=== PATIENT | male | born 1945 | race Caucasian/White ===

== ENCOUNTER 2019-01-22 11:23 | Day surgery (SDC) ==
--- NOTE | 2019-01-15 10:18 | EKG Report ---
Test Performed on : 01/15/2019 10:06:56 AM Test Reason : PAT Blood Pressure : / mmHG Vent. Rate : 088 BPM Atrial Rate : 088 BPM P-R Int : 130 ms QRS Dur : 084 ms QT Int : 334 ms P-R-T Axes : 083 056 073 degrees QTc Int : 404 ms Normal sinus rhythm. with sinus arrhythmia. Low voltage QRS Nonspecific T wave abnormality Abnormal ECG When compared with ECG of 13-JUL-2014 15:28, Nonspecific T wave abnormality no longer evident in Anterior leads Confirmed by Michelle RENE, Rocael ([id number]) on 01/16/2019 8:38:47 AM
[2019-01-15 10:41] LABS: HEMATOCRIT 47.2 % (42.0-52.0); MCHC 31.8 g/dL (33-37); MCV 97.5 FL (81-99); MPV 9.9 FL (7.4-10.4); RBC 4.84 XMIL (4.7-6.1); RDW 13.7 % (11.5-14.5); WBC 7.38 X1000 (4.8-10.8)
[2019-01-15 10:56] LABS: AGAP 9; BUN 16 mg/dL (8-22); CALCIUM 9.2 mg/dL (8.8-10.2); CHLORIDE 105 mmol/L (98-107); COSMO 288; CREATININE 0.7 mg/dL (0.7-1.2); ESTIMATED GFR > 60; GLUCOSE 90 mg/dL (70-104); POTASSIUM 4.2 mmol/L (3.5-5.1); SODIUM 144 mmol/L (136-145); TCO2 30 mmol/L (25-35)
[2019-01-22] MEDS ORDERED: SOLU-CORTEF ONE (11:46)
[2019-01-22] MEDS ORDERED: PEPCID ONE (11:46)
[2019-01-22] MEDS ORDERED: REGLAN ONE (11:46)
[2019-01-22] MEDS ORDERED: KEFZOL 1 GM/D5W 1 GM/50 ML IVPB ONE (11:47)
[2019-01-22] MEDS ORDERED: LR 1,000 ML ONE (11:47)
[2019-01-22] MEDS ORDERED: DIPRIVAN 1% ONE (12:08)
[2019-01-22] MEDS ORDERED: XYLOCAINE-MPF 2% ONE (12:23)
[2019-01-22] MEDS ORDERED: NEOSPORIN G.U. IRRIGANT ONE (12:54)
[2019-01-22] MEDS ORDERED: DUONEB (A & A) ONE (12:58)
[2019-01-22] MEDS ORDERED: B & O 15A SUPP ONE (13:42)
--- NOTE | 2019-01-22 13:57 | Diag Imaging Result Doc PS360 ---
EXAM: RETROGRADES 2 OR 3 FILMS 01/22/2019 HISTORY: bilateral retrogrades TECHNIQUE: Retrograde pyelogram 14 images, 13 seconds fluoroscopy time, 0.33 mGy. COMMENT: There is a filling defect in the distal left ureter which appears to be fairly persistent. This was not present at the time the previous study of 07/15/2014. It is not visible on the precontrast images. No filling defects or obstructing lesions are demonstrated on the right side. IMPRESSION: Persistent nodular filling defect in the distal left ureter. Electronically signed by Bobo Elam 01/22/2019 1:54 PM
[2019-01-22] MEDS ORDERED: SODIUM CHLORIDE 0.9% INJ PRN (14:45)
[2019-01-22] MEDS ORDERED: PHENERGAN IV PRN (14:45)
[2019-01-22] MEDS ORDERED: NORCO-7.5 PO PRN (14:45)
[2019-01-22] MEDS ORDERED: DITROPAN PO PRN (14:45)
[2019-01-22] MEDS ORDERED: BENADRYL LIQUID PO PRN (14:45)
[2019-01-22] MEDS ORDERED: NORCO-10 PO PRN (14:45)
[2019-01-22] MEDS ORDERED: LABETALOL IV PRN (14:45)
[2019-01-22] MEDS ORDERED: NORCO-5 PO PRN (14:45)
[2019-01-22] MEDS ORDERED: B & O 15A SUPP PR PRN (14:45)
--- NOTE | 2019-01-22 15:48 | OPERATIVE NOTE ---
PROCEDURE DATE: 01/22/2019 POSTOPERATIVE DIAGNOSES: 1. History of prostate cancer. 2. History of urothelial cancer. 3. Enlarged prostate with obstructive voiding. POSTOPERATIVE DIAGNOSES: 1. History of prostate cancer. 2. History of urothelial cancer. 3. Enlarged prostate with obstructive voiding. PROCEDURE PERFORMED: 1. Cystoscopic exam with bilateral retrograde ureteral pyelograms. 2. Transurethral resection of bladder tumor (about 3 cm in diameter). 3. Transurethral resection of the prostate. ANESTHESIA: General via laryngeal mask. FINDINGS: Cystoscopic exam: Urethra - greater than 25-Guinean without stricture. Prostate - coapting lateral lobes, elevated bladder neck, length approximately 4 cm. Bladder - normal ureteral orifices bilaterally. Grade 3 trabeculations. There is a flat papillary lesion on the upper mid posterior wall. Left retrograde ureteral pyelogram normal without filling defect. Right retrograde ureteral pyelogram normal without filling defect. INDICATION FOR PROCEDURE: This 73-year-old male has a history of urothelial carcinoma. His last bladder tumor resection was in 2013. He has had multiple intravesical treatments to prevent recurrence. He has been clear of any tumor for several years but on recent routine followup, he was noted to have a bladder tumor. He also has an enlarged prostate with obstructive voiding and desires removal of the obstructing tissue. 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 DESCRIPTION OF PROCEDURE: After informed consent was obtained from the patient and him receiving IV antibiotics, he was taken the main OR cystoscopy room, placed in supine position. General anesthesia via laryngeal mask was achieved. He was then placed in the low lithotomy position and prepped and draped in the usual sterile fashion for cystoscopic exam. A 21-[place]inean sheath cystoscope was passed the patient's urethra, prostate, and into the bladder with findings noted above. An 8-[place]ine[place] cone-tipped catheter was passed through the cystoscope, engaged in the left ureteral orifice. Contrast was injected. Right side was accomplished similarly. Again, no filling defects were seen on either side. The 8-[place]ine[place] cone-tipped catheter was removed. Cold cup biopsy forceps were placed and the flat papillary bladder tumor from the upper mid posterior wall was resected with the cups and sent to Pathology in 1 container. The cystoscope was removed, leaving the bladder distended. A 25-[place]inean continuous flow resectoscope sheath was placed. The thick gyrus loop electrode was placed. Hemostasis was achieved from where the bladder tumor was resected. Both ureteral orifices were again visualized. The verumontanum was visualized. The resection of the prostate was started at the 6 o'clock position, going to the level of the bladder neck, level of the verumontanum, proceeding in a clockwise direction up to the 10 o'clock position. The resection was then started back at the 6 o'clock position, going from the level of the bladder neck, level of the verumontanum, proceeding in a counterclockwise direction to the 2 o'clock position. Tissue from the anterior prostatic urethra was removed between the level of the bladder neck and the level of the verumontanum between the 2 o'clock and 10 o'clock positions. Hemostasis was achieved with electrocautery. The chips were removed from the bladder with the [employer] evacuators. At completion, the bladder neck was incised. The ureteral orifices were visualized and were intact. The verumontanum was intact. There were no bleeding areas from the bladder or the prostate. The bladder was left distended. The resectoscope was removed. A 22- [place], 3-way Thurston catheter was passed through the patient's urethra, prostate, and into bladder without difficulty and 30 mL of sterile water were placed in Thurston's balloon. The efflux color of the urine was very light pink. Continuous bladder irrigation of normal saline was started. The Thurston was placed to gravity drain and the efflux was clear. A 15-A B O suppository was placed without difficulty. He tolerated the procedure well. ESTIMATED BLOOD LOSS: 150 mL. DISPOSITION: He was taken to recovery room in good condition. cc: Evans Bender MD
[2019-01-22] MEDS: LR 1,000 ML IV SCH ×2 (16:00→20:34)
[2019-01-22] MEDS: KEFZOL 1 GM/D5W 1 GM/50 ML IVPB IV SCH (20:31)
[2019-01-22] MEDS: COLACE PO SCH (20:31)
[2019-01-22] MEDS: PEPCID PO SCH (20:31)
[2019-01-23] MEDS: ALBUTEROL NEB INH SCH ×3 (01:27→08:17)
[2019-01-23] MEDS: KEFZOL 1 GM/D5W 1 GM/50 ML IVPB IV SCH (04:29)
[2019-01-23] MEDS: LR 1,000 ML IV SCH (05:01)
[2019-01-23 06:33] LABS: HEMOGLOBIN 13.1 g/dL (14.0-18.0); MCV 97.2 FL (81-99); MPV 10.3 FL (7.4-10.4); RBC 4.22 XMIL (4.7-6.1); RDW 13.6 % (11.5-14.5); WBC 8.84 X1000 (4.8-10.8)
[2019-01-23 06:53] LABS: AGAP 8; BUN 9 mg/dL (8-22); CALCIUM 8.6 mg/dL (8.8-10.2); CHLORIDE 102 mmol/L (98-107); COSMO 281; CREATININE 0.6 mg/dL (0.7-1.2); ESTIMATED GFR > 60; GLUCOSE 111 mg/dL (70-104); POTASSIUM 3.7 mmol/L (3.5-5.1); SODIUM 141 mmol/L (136-145); TCO2 31 mmol/L (25-35)
[2019-01-23 08:00] VITALS: BP 117/70
[2019-01-23] MEDS: PEPCID PO SCH (10:14)
[2019-01-23] MEDS: COLACE PO SCH (10:14)
[2019-01-23] MEDS ORDERED: AMBIEN PO SCH (21:00)
[2019-01-23] MEDS ORDERED: LEXAPRO PO SCH (21:00)
[2019-01-23] MEDS ORDERED: FLOMAX PO SCH (21:00)
== END 2019-01-23 12:13 | disposition home or self-care (01) ==
LOC: PAT 11:23 → 4N 11:23 → PAT 01-23 12:13
PROVIDERS: ATTEND Urology
PROC: UR.TURP (2019-01-22 13:03)
CPT/HCPCS: 74420; 80048; 85027; 88305; 88313; 93005; 93010; 94640; 94761; 94799; A9270; J0690; J1720; J7120; Q9966; Q9967